=== PATIENT | male | born 1995 | race Caucasian/White ===

== ENCOUNTER 2019-12-05 20:32 | Emergency (ER) | payer OTHER ==
[~2019-12-05] VITALS: Ht 172.7 cm; Wt 60.8 kg
[2019-12-05 20:46] VITALS: Ht 172.7 cm; Wt 60.8 kg
[2019-12-05 22:14] VITALS: BP 117/68
== END 2019-12-05 22:14 | disposition home or self-care (01) ==
LOC: ED 20:32
DX: H21.02 Hyphema, left eye (principal); H57.04 Mydriasis